=== PATIENT | female | born 1970 | race American Indian/Alaskan Native ===

== ENCOUNTER 2017-07-26 07:43 | Emergency (ER) | payer BC ==
[2017-07-26 07:53] VITALS: BP 123/89
[2017-07-26] MEDS ORDERED: NORCO 5/325 PO ONE (09:55)
[2017-07-26] MEDS ORDERED: FLEXERIL PO ONE (09:55)
[2017-07-26 10:47] LABS: Bilirubin,Urine NEG (Negative); Blood,Urine NEG (Negative); Ketones,Urine NEG (Negative); Leukocyte Esterase,Urine NEG (Negative); Mucus,Urine FEW /HPF; Nitrite,Urine NEG (Negative); Protein,Urine <15 mg/dL mg/dL (Negative); Urobilinogen,Urine < 2.0 mg/dL (<2.0); WBC,Urine < 1.0 /HPF (0.0-6.0)
--- NOTE | 2017-07-26 11:40 | XRay Report ---
LUMBOSACRAL SPINE, 3 VIEWS: History: Back pain Findings: The vertebral bodies, disk spaces and posterior elements are intact. No compression deformity or malalignment. The SI joints are symmetric and unremarkable. Impression: 1. No evidence for acute injury to the lumbar spine.
--- NOTE | 2017-07-26 12:09 | Emergency Department Report ---
Entered by MORENA PHILIP, acting as scribe for BEA HOLCOMB PA. ED Back Pain/Injury HPI - General Chief Complaint: Back Pain/Injury Stated Complaint: LOWER BACK PAIN Time Seen by Provider: 07/26/17 09:40 Source: patient Mode of arrival: Ambulatory Limitations: No Limitations - History of Present Illness Initial Comments: 47 y/o female presents to the ED c/o lower back pain x 4 days. Denies frequency , urgency, dysuria, hematuria, nausea, vomiting, fever and chills. Pain is described as 7/10 on a severity scale. Patient states she works at [employer] and noticed pain after lifting boxes. Denies taking OTC meds. No alleviating or aggravating factors. NKDA. LMP: 05/31/17. Complaint: back pain Onset/Timin -: days(s) Similar Symptoms Previously: No Place: work Radiation: none Severity: mild Severity scale (0 -10): 7 Quality: aching Consistency: constant Improves With: none Worsens With: movement Context: while lifting Associated Symptoms: denies: confusion, weakness, numbness, difficulty urinating , incontinence, fever/chills, nausea/vomiting, rash, seizure, other (frequency, urgency, dysuria, hematuria) - Related Data Previous Rx's Medication Instructions Recorded Last Taken Type Meloxicam [Mobic] 7.5 mg PO QDAY #5 tablet 07/26/17 Unknown Rx methOCARBAMOL [Robaxin TAB] 500 mg PO TID #15 tab 07/26/17 Unknown Rx Allergies Allergy/AdvReac Type Severity Reaction Status Date / Time No Known Allergies Allergy Unverified 07/26/17 07:48 ED Review of Systems Comment: All other systems reviewed and negative Constitutional: denies: chills, fever Eyes: denies: eye pain, eye discharge, vision change ENT: denies: ear pain, throat pain Respiratory: denies: cough, shortness of breath, wheezing Cardiovascular: denies: chest pain, palpitations Endocrine: no symptoms reported Gastrointestinal: denies: nausea, vomiting Genitourinary: denies: urgency, dysuria, frequency, hematuria Musculoskeletal: back pain Skin: denies: rash, lesions Neurological: denies: headache, weakness, numbness, paresthesias, confusion, abnormal gait, vertigo Psychiatric: denies: anxiety, depression Hematological/Lymphatic: denies: easy bleeding, easy bruising ED Past Medical Hx - Past Medical History Previous Medical History?: No - Surgical History Additional Surgical History: C SECTION FX ANKLE - Social History Smoking Status: Never Smoker Substance Use Type: None - Medications Home Medications: Home Medications Medication Instructions Recorded Confirmed Last Taken Type Meloxicam [Mobic] 7.5 mg PO QDAY #5 tablet 07/26/17 Unknown Rx methOCARBAMOL [Robaxin TAB] 500 mg PO TID #15 tab 07/26/17 Unknown Rx ED Physical Exam - General Limitations: No Limitations General appearance: alert, in no apparent distress - Head Head exam: Present: atraumatic, normocephalic, normal inspection - Eye Eye exam: Present: normal appearance, PERRL, EOMI. Absent: scleral icterus, conjunctival injection, nystagmus, periorbital swelling, periorbital tenderness Pupils: Present: normal accommodation - ENT ENT exam: Present: normal exam, normal orophraynx, mucous membranes moist, TM's normal bilaterally, normal external ear exam - Neck Neck exam: Present: normal inspection, full ROM. Absent: tenderness, meningismus, lymphadenopathy, thyromegaly - Respiratory Respiratory exam: Present: normal lung sounds bilaterally. Absent: respiratory distress, wheezes, rales, rhonchi, stridor, chest wall tenderness, accessory muscle use, decreased breath sounds, prolonged expiratory - Cardiovascular Cardiovascular Exam: Present: regular rate, normal rhythm, normal heart sounds. Absent: bradycardia, tachycardia, irregular rhythm, systolic murmur, diastolic murmur, rubs, gallop - GI/Abdominal GI/Abdominal exam: Present: soft, normal bowel sounds. Absent: tenderness, guarding, rebound - Extremities Exam Extremities exam: Present: normal inspection, full ROM, normal capillary refill. Absent: tenderness, pedal edema, joint swelling, calf tenderness - Back Exam Back exam: Present: normal inspection, full ROM, tenderness (mild lumbar tenderness). Absent: CVA tenderness (R), CVA tenderness (L), muscle spasm, paraspinal tenderness, vertebral tenderness, rash noted - Neurological Exam Neurological exam: Present: alert, oriented X3, normal gait - Psychiatric Psychiatric exam: Present: normal affect, normal mood - Skin Skin exam: Present: warm, dry, intact, normal color. Absent: rash ED Course Vital Signs 07/26/17 07/26/17 07:49 10:01 Temperature 98.3 F Pulse Rate 81 Respiratory 18 16 Rate Blood Pressure 123/89 O2 Sat by Pulse 100 Oximetry ED Medical Decision Making - Lab Data Labs 07/26/17 10:29 Urine Color Yellow Urine Turbidity Clear Urine pH 7.0 Ur Specific [place] 1.017 Urine Protein <15 mg/dl Urine Glucose (UA) Neg Urine Ketones Neg Urine Blood Neg Urine Nitrite Neg Urine Bilirubin Neg Urine Urobilinogen < 2.0 Ur Leukocyte Esterase Neg Urine WBC (Auto) < 1.0 Urine RBC (Auto) 2.0 U Epithel Cells (Auto) 4.0 Urine Mucus Few Urine HCG, Qual Negative - Radiology Data Radiology results: report reviewed XR lumbar No acute findings per radiologist. - Medical Decision Making 47 year old female presents to ED with lower back pain x4 days. patient states she does a lot of lifting at work. patient is stable, neurologically intact and in no acute distress. patient is ambulatory. patient has negative urine for UTI and no acute findings on imaging. ED Disposition Clinical Impression: Low back pain Qualifiers: Chronicity: acute Back pain laterality: bilateral Sciatica presence: without sciatica Qualified Code(s): M54.5 - Low back pain Disposition: DC-01 TO HOME OR SELFCARE Is pt being admited?: No Does the pt Need Aspirin: No Condition: Stable Instructions: Acute Low Back Pain (ED) Prescriptions: Meloxicam [Mobic] 7.5 mg PO QDAY #5 tablet methOCARBAMOL [Robaxin TAB] 500 mg PO TID #15 tab Referrals: PRIMARY CARE, [Primary Care Provider] - 3-5 Days Forms: Work/School Release Form(ED) This documentation as recorded by the TAMERA haile ELIZABETH,accurately reflects the service I personally performed and the decisions made by ,BEA HOLCOMB PA.
== END 2017-07-26 12:20 | disposition home or self-care (01) ==
LOC: ED 07:43
DX: M54.5 Low back pain (principal)
CPT/HCPCS: 72100; 81001; 81025